=== PATIENT | female | born 1950 | race Asian ===

== ENCOUNTER 2020-08-26 18:09 | Emergency (ER) | payer MEDICARE, MEDICAID ==
[~2020-08-26] VITALS: Ht 142.2 cm; Wt 61.9 kg
[~2020-08-26 18:09] MED LIST: HYDR1TAB PO; METF500T PO; ROSU10TA2 PO; ZOF4T PO
[2020-08-26 19:16] LABS: CLARITY,URINE CLEAR (Clear); COLOR,URINE YELLOW (Yellow); GLUCOSE, URINE NEGATIVE (Neg); KETONES,URINE NEGATIVE (Neg); LEUKOCYTE ESTERASE ,URINE SMALL (Neg); NITRITES, URINE POSITIVE (Neg); OCCULT BLOOD,URINE NEGATIVE (Neg); PH,URINE 5.5 (4.8-8.0); PROTEIN,URINE NEGATIVE (Neg); UROBILINOGEN,URINE 0.2 E.U/dL (0.2-1.0)
[2020-08-26 19:32] LABS: UA COLLECTION TYPE CLN CATCH MIDSTREAM
[2020-08-26 19:35] LABS: BACTERIA,URINE 3+ /HPF (Neg); RBC,URINE 0-2 /HPF (0-2); SQUAMOUS EPITHELIAL CELL,UR FEW /LPF (FEW); WBC CLUMPS,URINE FEW /HPF (NEGATIVE)
[2020-08-26 19:36] LABS: HYALINE CASTS 0-3 /LPF (NEGATIVE)
[2020-08-26 20:03] LABS: BASOPHILS % (AUTO) 0.4 % (0-1); EOSINOPHILS # (AUTO) 0.2 X10'3 (0-0.9); EOSINOPHILS % (AUTO) 2.4 % (0-6); HEMATOCRIT 33.8 % (35.0-45.0); HEMOGLOBIN 11.3 g/dl (12.0-16.0); LYMPHOCYTES # (AUTO) 1.5 X10'3 (1.1-4.8); LYMPHOCYTES % (AUTO) 18.3 % (21-51); MEAN CORPUSCULAR HEMOGLOBIN 28.3 PG (27.0-31.0); MEAN CORPUSCULAR HGB CONC 33.4 g/dL (33.0-36.5); MEAN CORPUSCULAR VOLUME 84.8 FL (78-98); MEAN PLATELET VOLUME 7.8 FL (7.4-10.4); MONOCYTES # (AUTO) 0.6 X10'3 (0-0.9); MONOCYTES % (AUTO) 8.1 % (2-12); NEUTROPHILS # (AUTO) 5.7 X10'3 (1.8-7.7); NEUTROPHILS % (AUTO) 70.8 % (42-75); PLATELET COUNT 162 X10'3 (140-440); RED BLOOD COUNT 3.99 X10'6 (4.20-5.60); RED CELL DISTRIBUTION WIDTH 12.5 % (11.5-14.5)
[2020-08-26 20:22] LABS: ALANINE AMINOTRANSFERASE 20 U/L (12-78); ALBUMIN 3.1 G/DL (3.4-5.0); ALBUMIN/GLOBULIN RATIO 0.8 (1.1-1.5); ALKALINE PHOSPHATASE 63 IU/L (46-116); ANION GAP 9 (8-16); ASPARTATE AMINO TRANSFERASE 22 U/L (10-37); BILIRUBIN,TOTAL 0.4 MG/DL (0.1-1.0); BLOOD UREA NITROGEN 17 MG/DL (7-18); CALCIUM 8.4 MG/DL (8.5-10.1); CHLORIDE 106 MMOL/L (99-107); CREATININE 1.21 MG/DL (0.40-0.90); GLUCOSE 181 MG/DL (70-104); LIPASE 192 U/L (73-393); POTASSIUM 3.6 MMOL/L (3.5-5.1); SODIUM 141 MMOL/L (135-145); TOTAL CARBON DIOXIDE 25.9 MMOL/L (24-32); eGFR 44 ML/MIN
[2020-08-27 01:03] VITALS: BP 157/69
[2020-08-27] MEDS ORDERED: CefTRIAXone 2gm/D5W 50ml BAG 50 ML IV ONE (01:25)
[2020-08-27] MEDS ORDERED: ketorolac trometh. 30mg/ml inj. IV ONE (01:25)
[2020-08-27] MEDS ORDERED: CIP750T PO (03:21)
== END 2020-08-27 06:46 | disposition home or self-care (01) ==
LOC: ER 18:09
DX: N39.0 Urinary tract infection, site not specified (principal); R10.31 Right lower quadrant pain; R50.9 Fever, unspecified; E78.00 Pure hypercholesterolemia, unspecified; E11.9 Type 2 diabetes mellitus without complications; Z98.890 Other specified postprocedural states; Z88.0 Allergy status to penicillin; Z79.2 Long term (current) use of antibiotics; Z79.899 Other long term (current) drug therapy
CPT/HCPCS: 36415; 74176; 80053; 81001; 83690; 85025; 87077; 87088; 87186; 96365; 96366; 96375; 99284; J0696; J1885

== ENCOUNTER 2021-06-15 09:30 | Outpatient (CLI) | payer MEDICARE, MEDICAID ==
--- NOTE | 2021-06-15 11:00 | NUR ---
called agustina santa PA-C at her office at [phone], spoke with lele (staff) and explain situation, and requested a written order from provider for sincalide medication (pre protocal of hida scan) for patient who is here for outpatient HIDA SCAN. RN cannot order on [facility] (provider name is not listed to order). Pharmacy does have her listed but will not order due to order form. patients order form was faxed to pharmacy. Spoke with pharmacist to clarify situation and stated we need an providers order for the medication. Waiting on providers fax order or phone call.
--- NOTE | 2021-06-15 12:00 | NUR ---
no verbal or written orders were provided. procedure completed with NO additional medication as mentioned.
== END 2021-06-15 23:59 | disposition home or self-care (01) ==
LOC: RAD 09:30
PROVIDERS: ATTEND Physician Assistant
DX: R10.9 Unspecified abdominal pain (principal)
CPT/HCPCS: 78226; A9537

== ENCOUNTER 2022-07-04 20:32 | Emergency (ER) | payer MEDICARE, MEDICAID ==
[~2022-07-04] VITALS: Ht 149.9 cm; Wt 56.8 kg
[2022-07-04 20:47] LABS: BASOPHILS % (AUTO) 0.3 % (0-1); EOSINOPHILS % (AUTO) 0.2 % (0-6); HEMOGLOBIN 11.3 g/dl (12.0-16.0); LYMPHOCYTES # (AUTO) 1.3 X10'3 (1.1-4.8); MEAN CORPUSCULAR HEMOGLOBIN 28.4 PG (27.0-31.0); MEAN CORPUSCULAR HGB CONC 33.3 g/dL (33.0-36.5); MEAN CORPUSCULAR VOLUME 85.3 FL (78-98); MONOCYTES # (AUTO) 0.2 X10'3 (0-0.9); MONOCYTES % (AUTO) 2.6 % (2-12); NEUTROPHILS # (AUTO) 5.4 X10'3 (1.8-7.7); NEUTROPHILS % (AUTO) 77.9 % (42-75); PLATELET COUNT 171 X10'3 (140-440); RED BLOOD COUNT 3.99 X10'6 (4.20-5.60); RED CELL DISTRIBUTION WIDTH 13.3 % (11.5-14.5)
[2022-07-04 21:04] LABS: ALANINE AMINOTRANSFERASE 46 U/L (12-78); ALBUMIN 3.5 G/DL (3.4-5.0); ALKALINE PHOSPHATASE 61 IU/L (46-116); ANION GAP 8 (8-16); ASPARTATE AMINO TRANSFERASE 24 U/L (10-37); BILIRUBIN,TOTAL 0.9 MG/DL (0.1-1.0); BLOOD UREA NITROGEN 24 MG/DL (7-18); BUN/CREATININE RATIO 14.9 (10.0-20.0); CALCIUM 9.8 MG/DL (8.5-10.1); CHLORIDE 98 MMOL/L (99-107); CREATININE 1.61 MG/DL (0.40-0.90); MAGNESIUM 1.5 MG/DL (1.5-2.4); POTASSIUM 5.4 MMOL/L (3.5-5.1); SODIUM 133 MMOL/L (135-145); TOTAL CARBON DIOXIDE 27.3 MMOL/L (24-32); TOTAL PROTEIN 7.1 G/DL (6.4-8.2); eGFR 32 ML/MIN
[2022-07-04 21:16] LABS: GLUCOSE 504 MG/DL (70-104)
[2022-07-04] MEDS ORDERED: normal saline 1000ml 1,000 ML IV ONE (21:20)
[2022-07-04] MEDS ORDERED: insulin regular, human 10 units/0.1 ml syringe IV ONE (21:20)
[2022-07-04] MEDS ORDERED: albuterol 2.5 MG/3 ML nebule CONTNEB PRN (21:40)
[2022-07-04 23:06] LABS: COLOR,URINE STRAW (Yellow); GLUCOSE, URINE >=1000 mg/dl (Neg); KETONES,URINE NEGATIVE (Neg); LEUKOCYTE ESTERASE ,URINE NEGATIVE (Neg); NITRITES, URINE POSITIVE (Neg); OCCULT BLOOD,URINE NEGATIVE (Neg); PROTEIN,URINE NEGATIVE (Neg); UROBILINOGEN,URINE 0.2 E.U/dL (0.2-1.0)
[2022-07-04 23:12] LABS: UA COLLECTION TYPE NON-SPECIFIED
[2022-07-04 23:13] LABS: CLARITY,URINE SLIGHTLY CLOUDY (Clear)
[2022-07-04 23:14] LABS: BACTERIA,URINE 4+ /HPF (Neg); MUCUS STRANDS FEW /LPF (Neg); RBC,URINE 0-2 /HPF (0-2); SQUAMOUS EPITHELIAL CELL,UR FEW /LPF (FEW); WBC,URINE 0-4 /HPF (0-4)
[2022-07-04] MEDS ORDERED: CEPH250T PO (23:18)
[2022-07-04] MEDS ORDERED: cephalexin 500mg capsule PO ONE (23:20)
[2022-07-04 23:38] VITALS: BP 122/85
== END 2022-07-04 23:40 | disposition home or self-care (01) ==
LOC: ER 20:32
DX: N39.0 Urinary tract infection, site not specified (principal); E86.0 Dehydration; R73.9 Hyperglycemia, unspecified; E78.00 Pure hypercholesterolemia, unspecified; E11.9 Type 2 diabetes mellitus without complications; Z88.0 Allergy status to penicillin; Z88.8 Allergy status to other drugs, medicaments and biological substances; Z79.899 Other long term (current) drug therapy; Z79.1 Long term (current) use of non-steroidal anti-inflammatories (NSAID); Z79.2 Long term (current) use of antibiotics
CPT/HCPCS: 36415; 71045; 80053; 81001; 82948; 83735; 83880; 84484; 85025; 87077; 87088; 87186; 93005; 96361; 96374; 99285; J1815; J7030